=== PATIENT | female | born 1935 | race Caucasian/White ===

== ENCOUNTER 2018-06-01 12:57 | Emergency (ER) | payer OTHER ==
[2018-06-01 13:26] VITALS: TEMP 97.6; BMI 25.7
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
[2018-06-01] MEDS ORDERED: ACETAMINOPHEN 500 MG TABLET (FP) ONE (13:52)
[2018-06-01] MEDS ORDERED: ACETAMINOPHEN 500 MG TABLET (FP) PO ONE (14:43)
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
[2018-06-01] MEDS ORDERED: ACETAMINOPHEN 325 MG TABLET (FP) ONE (14:52)
[2018-06-01 18:09] VITALS: BP 132/69; PULSE 79
--- NOTE | 2018-06-03 07:23 | EKG ---
Test Reason : Blood Pressure : / mmHG Vent. Rate : 077 BPM Atrial Rate : 077 BPM P-R Int : 174 ms QRS Dur : 098 ms QT Int : 400 ms P-R-T Axes : 063 011 046 degrees QTc Int : 452 ms NORMAL SINUS RHYTHM NORMAL ECG NO PREVIOUS ECGS AVAILABLE Confirmed by CHRISTI GRUBBS MD ([id number]) on 06/03/2018 7:22:39 AM Referred By: Confirmed By:CHRISTI GRUBBS MD
== END 2018-06-01 18:09 | disposition home or self-care (01) ==
LOC: JER 12:57 → EDBD 12:57 → JERFT 12:57 → JER 18:09
CPT/HCPCS: 36415; 70450-TC; 71046-TC-FY; 72125-TC; 82550; 84484; 93005; 93010; 99282-25